=== PATIENT | female | born 2000 | race African-American/Black ===

== ENCOUNTER 2022-11-27 17:37 | Emergency (ER) | payer OTHER ==
[~2022-11-27] VITALS: Ht 162.6 cm; Wt 72.3 kg
[2022-11-27 18:52] LABS: APPEARANCE,URINE HAZY (CLEAR); BILIRUBIN,URINE NEGATIVE (NEGATIVE); GLUCOSE, URINE (UA) NEGATIVE (NEGATIVE); KETONES,URINE NEGATIVE (NEGATIVE); LEUKOCYTE ESTERASE ,URINE SMALL (NEGATIVE); NITRATE,URINE NEGATIVE (NEGATIVE); OCCULT BLOOD,URINE NEGATIVE (NEGATIVE); PROTEIN,URINE TRACE mg/dL (NEGATIVE); SPECIFIC GRAVITIY, URINE 1.022 (1.003-1.030); UROBILINOGEN,URINE <=1.0 mg/dL (<=1.0)
[2022-11-27 18:58] LABS: BACTERIA,URINE Moderate /HPF (None Seen); RBC,URINE 0-2 /HPF (0-2); SQUAMOUS EPITHELIAL CELL,UR Moderate /LPF (None Seen)
[2022-11-27] MEDS ORDERED: MICO45CR44 VG (19:55)
[2022-11-27] MEDS ORDERED: CEPH-558 PO (19:55)
[2022-11-27 20:49] VITALS: BP 125/67
== END 2022-11-27 20:50 | disposition home or self-care (01) ==
LOC: EMS 17:40
DX: B37.31 Acute candidiasis of vulva and vagina (principal); N39.0 Urinary tract infection, site not specified; Z91.010 Allergy to peanuts
CPT/HCPCS: 81001; 84703; 87086; 87186; 87491; 87591; 99283